=== PATIENT | male | born 1965 | race Caucasian/White ===

== ENCOUNTER 2017-02-21 17:00 | Emergency (ER) | payer MEDICAID ==
[2017-02-21 17:00] VITALS: BMI 27.4
[2017-02-21 17:27] VITALS: BP 120/84; PULSE 75; RESP 18; TEMP 98.1; O2SAT 97
[2017-02-21] MEDS ORDERED: Naproxen 550 mg Tab PO STA (18:22)
--- NOTE | 2017-02-21 18:29 | C.PDOC ---
History Of Present Illness 51 yr old male presents to the ER for evaluation of left ear ache for the past several days. Patient states he has been to several dentists and a pharmacist, and was told he "has an ear infection". Patient denies fever, nausea, vomiting , neck pain, headache, ear discharge, cough, sore throat. Time Seen by Provider: 02/21/17 17:28 Chief Complaint (Nursing): ENT Problem History Per: Patient History/Exam Limitations: None Onset/Duration Of Symptoms: Days Current Symptoms Are (Timing): Still Present Symptoms Have Been: Continuous Severity: Mild Past Medical History Reviewed: Historical Data, Nursing Documentation, Vital Signs Vital Signs: Last Vital Signs Temp 98.1 F 02/21/17 17:25 Pulse 75 02/21/17 17:25 Resp 18 02/21/17 17:25 BP 120/84 02/21/17 17:25 Pulse Ox 97 02/21/17 19:08 - Medical History PMH: Asthma - [facility] Procedures INDIVIDUAL PSYCHOTHERAPY, COGNITIVE-BEHAVIORAL (12/05/16) Family History: States: No Known Family Hx - Social History Hx Tobacco Use: No Hx Alcohol Use: No Hx Substance Use: No - Immunization History Hx Tetanus Toxoid Vaccination: No Hx Influenza Vaccination: No Hx Pneumococcal Vaccination: No Review Of Systems Except As Marked, All Systems Reviewed And Found Negative. Constitutional: Negative for: Fever ENT: Positive for: Ear Pain (Left). Negative for: Throat Pain Cardiovascular: Negative for: Chest Pain Respiratory: Negative for: Cough, Shortness of Breath Gastrointestinal: Negative for: Nausea, Vomiting Musculoskeletal: Negative for: Neck Pain Skin: Negative for: Rash Neurological: Negative for: Headache Physical Exam - Physical Exam Appears: Well, Non-toxic, No Acute Distress Skin: Warm, Dry, No Rash Eye(s): bilateral: Normal Inspection Ear(s): Bilateral: Normal Oral Mucosa: Moist Teeth: Other (very poor dentition, gingival erythema around right lower molas, no fluctuance/induration) Throat: Normal, No Erythema, No Exudate, No Drooling Neck: Normal, Normal ROM, Supple Cardiovascular: Rhythm Regular Respiratory: Normal Breath Sounds, No Rales, No Rhonchi, No Stridor, No Wheezing Extremity: Normal ROM, No Swelling Neurological/Psych: Oriented x3 ED Course And Treatment O2 Sat by Pulse Oximetry: 97 (RA) Pulse Ox Interpretation: Normal Progress Note: Ear exam normal, pain is likely referred and due to dental source /infection. Patient given PO Penicillin, PO Naprosyn and PO sudafed. He was given Rxs for same, and instructed to follow up with dentist within 1 week. Patient also instructed to follow up with ENT within 1 week if ear pain persists. Disposition Counseled Patient/Family Regarding: Studies Performed, Diagnosis, Need For Followup, Rx Given - Disposition Ref[facility]: [facility] Disposition: HOME/ ROUTINE Disposition Time: 18:25 Condition: STABLE Additional Instructions: YOU NEED TO FOLLOW UP WITH DENTIST WITHIN 1 WEEK FOR FURTHER EVALUATION OF YOUR DENTAL PAIN USE MEDICATIONS DIRECTED FOLLOW UP WITH YOUR DOCTOR/CLINIC IN 1-2 DAYS RETURN TO ER IF SYMPTOMS WORSEN Prescriptions: Neomycin/Polymyxin/Hydrocort [Cortisporin Otic Soln] 4 drop GT TID #1 bottle Naproxen [Naprosyn Tab] 375 mg PO BID PRN #20 tab PRN Reason: pain Penicillin VK [Pen-Vee K] 1 tab PO Q6 #28 tab Pseudoephedrine [Sudafed] 60 mg PO Q6 PRN #12 tab PRN Reason: Nasal Congestion Instructions: Dental Caries (ED), Toothache (ED), Cold Symptoms (ED) Print Language: MALIAN - POA Present On Arrival: None - Clinical Impression Clinical Impression: Nasal congestion, Dental caries, Tooth pain, Ear pressure - Scribe Statement The provider has reviewed the documentation as recorded by the Brooke Giang Provider Attestation: All medical record entries made by the Brooke were at my direction and personally dictated by me. I have reviewed the chart and agree that the record accurately reflects my personal performance of the history, physical exam, medical decision making, and the department course for this patient. I have also personally directed, reviewed, and agree with the discharge instructions and disposition.
[2017-02-21] MEDS ORDERED: Naproxen 550 mg Tab PO ONE (19:14)
== END 2017-02-21 19:22 | disposition home or self-care (01) ==
LOC: C.ER 17:00
DX: K02.9 Dental caries, unspecified (principal); R09.81 Nasal congestion; H92.02 Otalgia, left ear